=== PATIENT | female | born 1945 | race Caucasian/White ===

== ENCOUNTER → 2017-01-12 | Outpatient (CLI) | payer MEDICARE ==
--- NOTE | 2017-01-12 15:06 | RAD ---
Right shoulder, 3 views, 01/12/2017: History: Shoulder pain The bony structures are demineralized. No fracture or dislocation is identified. There is mild degenerative change at the acromioclavicular joint. The periarticular soft tissues are unremarkable. IMPRESSION: 1. Demineralization. 2. Mild degenerative change at the AC joint. 3. No acute bony abnormality is detected.
== END | disposition home or self-care (01) ==
LOC: DXRADRC 11:46
PROVIDERS: ATTEND Physician Assistant
DX: M19.011 Primary osteoarthritis, right shoulder (principal); M81.8 Other osteoporosis without current pathological fracture
CPT/HCPCS: 73030

== ENCOUNTER → 2018-11-01 | Outpatient (CLI) | payer MEDICARE ==
[2018-11-01 09:57] LABS: ALBUMIN 3.5 g/dL (3.4-5.0); CALCIUM 8.9 mg/dL (8.5-10.1); CREATININE 0.7 mg/dL (0.6-1.0); GFR 81.6; POTASSIUM 4.2 mmol/L (3.5-5.1); TOTAL BILIRUBIN 0.6 mg/dL (0.2-1.0)
== END | disposition home or self-care (01) ==
LOC: LAB 08:43
PROVIDERS: ATTEND Internal Medicine Cardiovascular Disease
DX: I25.10 Atherosclerotic heart disease of native coronary artery without angina pectoris (principal)
CPT/HCPCS: 36415; 80053; 80061

== ENCOUNTER → 2019-12-18 | Outpatient (CLI) | payer MEDICARE ==
[2019-12-18 09:41] LABS: ALBUMIN 3.3 g/dL (3.4-5.0); ALBUMIN/GLOBULIN RATIO 0.9 (1.0-1.7); CALCIUM 8.8 mg/dL (8.5-10.1); CREATININE 0.9 mg/dL (0.6-1.0); GFR 60.9; POTASSIUM 4.1 mmol/L (3.5-5.1); TOTAL BILIRUBIN 0.4 mg/dL (0.2-1.0); TOTAL PROTEIN 6.9 g/dL (6.4-8.2)
== END ==
LOC: LAB 07:39
PROVIDERS: ATTEND Internal Medicine Cardiovascular Disease
DX: I25.10 Atherosclerotic heart disease of native coronary artery without angina pectoris (principal)
CPT/HCPCS: 36415; 80053; 80061

== ENCOUNTER → 2020-01-16 | Outpatient (CLI) | payer MEDICARE ==
--- NOTE | 2020-01-16 15:53 | CARD ---
MR#: [id number] Date of Study: 01/16/2020 Ordering Physician: BENNIE WILKERSON, Referring Physician: BENNIE WILKERSON, Tech: Preethi Valdez [facility] APPROVED REPORT EXAM: Two-dimensional and M-mode echocardiogram with Doppler and color Doppler. Other Information Quality : Good INDICATION Cardiac Disease: CAD 2D DIMENSIONS RVDd3.1 (2.9-3.5cm)Left Atrium(2D)3.5 (1.6-4.0cm) IVSd0.8 (0.7-1.1cm)Aortic Root(2D)3.0 (2.0-3.7cm) LVDd4.1 (3.9-5.9cm)LVOT Diameter2.1 (1.8-2.4cm) PWd0.7 (0.7-1.1cm)LVDs2.8 (2.5-4.0cm) FS (%) 32.4 %SV45.1 ml LVEF(%)61.2 (>50%) Aortic Valve AoV Peak Godwin.119.2cm/sAoV VTI23.1cm AO Peak GR.5.7mmHgLVOT Peak Godwin.112.7cm/s LVOT VTI 20.78cmAO Mean GR.3mmHg SACHIN (VMAX)3.25so4JZO (VTI)3.02cm2 Mitral Valve MV E Plengxhj86.1cm/sMV DECEL [id number] MV A Euawuwqa02.7cm/sE/A Ratio1.1 Tricuspid Valve TR P. Cxpggagp257ft/sRAP UMGJZAAG4ljIn TR Peak Gr.95jhPjEDBT87eaQh Pulmonary Vein S1 Qgewwilb35.9cm/sD2 Jucsczve24.9cm/s LEFT VENTRICLE The left ventricle is normal size. There is normal left ventricular wall thickness. The left ventricu lar systolic function is normal. The Ejection Fraction is 55-60%. There is normal LV segmental wall m otion. Transmitral Doppler flow pattern is Grade I-abnormal relaxation pattern. RIGHT VENTRICLE The right ventricle is normal size. The right ventricular systolic function is normal. ATRIA The left atrium size is normal. The right atrium size is normal. The interatrial septum is intact wit h no evidence for an atrial septal defect or patent foramen ovale as noted on 2-D or Doppler imaging. AORTIC VALVE The aortic valve is calcified but opens well. Doppler and Color Flow revealed trace aortic regurgitat ion. There is no significant aortic valvular stenosis. MITRAL VALVE The mitral valve is calcified but opens well. There is no evidence of mitral valve prolapse. There is no mitral valve stenosis. Doppler and Color-flow revealed mild mitral regurgitation. TRICUSPID VALVE The tricuspid valve is normal in structure and function. Doppler and Color Flow revealed mild tricusp id regurgitation. The PA pressure was estimated at 27 mmHg. There is no tricuspid valve stenosis. PULMONIC VALVE The pulmonary valve is normal in structure and function. Doppler and Color Flow revealed mild pulmoni c valvular regurgitation. There is no pulmonic valvular stenosis. GREAT VESSELS The aortic root is normal in size. The ascending aorta is normal in size. The IVC is normal in size a nd collapses >50% with inspiration. PERICARDIAL EFFUSION There is no evidence of significant pericardial effusion. Critical Notification Critical Value: No <Conclusion> The left ventricular systolic function is normal. The Ejection Fraction is 55-60%. There is normal LV segmental wall motion. Mild mitral regurgitation. Mild tricuspid regurgitation. The PA pressure was estimated at 27 mmHg. There is no evidence of significant pericardial effusion. Signed by : Daryn Reeves, Electronically Approved : 01/16/2020 15:52:52
== END | disposition home or self-care (01) ==
LOC: ECHO 14:44
PROVIDERS: ATTEND Internal Medicine Cardiovascular Disease
DX: I08.8 Other rheumatic multiple valve diseases (principal); I25.10 Atherosclerotic heart disease of native coronary artery without angina pectoris
CPT/HCPCS: 93306

== ENCOUNTER → 2020-01-23 | Outpatient (CLI) | payer MEDICARE ==
--- NOTE | 2020-01-23 17:20 | RAD ---
Examination: Two-view chest HISTORY: History of COPD COMPARISON: None available FINDINGS: The cardiomediastinal grossly appears unremarkable. Mild hyperinflated lungs. Mild prominent appearing bilateral perihilar interstitial lung markings particularly in the bibasilar lungs. Moderate degenerative changes thoracic spine. Mild compression changes of the lower thoracic vertebral body identified. IMPRESSION: Mild prominent bilateral interstitial lung markings could be interstitial lung disease. Recommend CT chest for further evaluation Electronically signed by: Artie Hicks MD (01/23/2020 5:17 PM) [id number]
== END | disposition home or self-care (01) ==
LOC: RAD 12:56
PROVIDERS: ATTEND Internal Medicine Pulmonary Disease
DX: J44.9 Chronic obstructive pulmonary disease, unspecified (principal); M47.814 Spondylosis without myelopathy or radiculopathy, thoracic region
CPT/HCPCS: 71046

== ENCOUNTER → 2020-02-16 | Outpatient (CLI) | payer MEDICARE ==
--- NOTE | 2020-02-16 10:31 | RAD ---
EXAM: CT Chest without IV contrast INDICATION: Reason: COPD. ABNORMAL CXR / Spl. Instructions: / History: TECHNIQUE: Multi-detector row CT images were acquired from the thoracic inlet through the upper abdomen without the use of IV contrast. Sagittal and coronal images were acquired from the transaxial data. Images were acquired both in inspiration and expiration in both the supine and prone positions with high-resolution thin slice discontinuous images. All CT scans performed at this facility utilize dose optimization techniques as appropriate to the exam, including the following: Automated exposure control and adjustment of the mA and/or KV according to patient size (this includes techniques or standardized protocols for targeted exams where dose is indication/reason for exam). COMPARISON: Chest x-ray 01/23/2020 FINDINGS: The absence of IV contrast limits evaluation of soft tissue pathology. CARDIOVASCULAR: Unremarkable MEDIASTINUM & GOLD: Mildly enlarged precarinal node measuring 1.2 cm. No hilar adenopathy. Ascending thoracic aorta measures 3.3 cm, normal in caliber with three-vessel aortic arch. LUNGS: Bilateral reticulonodular opacities in tree-in-bud configuration are present, most conspicuously in the lingula, right middle lobe and in the right lower lobe. Tubular bronchiectasis with volume loss in the medial lungs is also noted. There are no persistent subpleural reticular opacities in the lower lobes on prone imaging. A discrete, round 6 mm noncalcified nodule in the right lower lobe (image 33 of series 2) is present. The lungs are hyperinflated PLEURAL SPACE: No pleural effusions or pneumothorax. OSSEOUS & SOFT TISSUE: Unremarkable ABDOMEN: The visualized portions of the upper abdomen are unremarkable. IMPRESSION: COPD with bilateral tree-in-bud reticulonodular opacities affecting the medial lungs to the greatest extent in a pattern suggesting a chronic atypical inflammatory process such as mycobacterial intracellulare infection. No mass is identified on noncontrast CT. Mildly prominent pretracheal lymph node is favored reactive. Electronically signed by: Abner Rivera MD (02/16/2020 10:28 AM) [id number]
== END | disposition home or self-care (01) ==
LOC: CT 07:31
PROVIDERS: ATTEND Internal Medicine Pulmonary Disease
DX: J44.9 Chronic obstructive pulmonary disease, unspecified (principal); R91.1 Solitary pulmonary nodule
CPT/HCPCS: 71250

== ENCOUNTER → 2020-09-28 | Outpatient (CLI) | payer MEDICARE ==
--- NOTE | 2020-09-28 10:38 | RAD ---
XR TIBIA+FIBULA History: Reason: numbness x 1 week / Spl. Instructions: / History: Technique: 2 views bilateral tibia and fibulas. Comparison: None. Findings: Right tibia and fibula: Normal alignment. No fracture. Soft tissues unremarkable. Left tibia and fibula: Normal alignment. No fracture. Soft tissues unremarkable. Impression: 1. No acute osseous abnormality. Electronically signed by: Jaron Wilks DO (09/28/2020 10:35 AM) [facility]
== END ==
LOC: RAD 09:56
PROVIDERS: ATTEND Family Medicine
DX: R20.2 Paresthesia of skin (principal)
CPT/HCPCS: 73590

== ENCOUNTER → 2020-12-24 | Outpatient (CLI) | payer MEDICARE ==
--- NOTE | 2020-12-24 09:56 | RAD ---
EXAM: Right lower extremity venous Doppler sonogram. HISTORY: Pain and swelling. TECHNIQUE: Bansal scale and color Doppler sonographic evaluation of the right lower extremity veins wit h spectral waveform analysis was performed. FINDINGS: There is normal color flow, normal compressibility and there are normal spectral waveforms in the common femoral, superficial femoral, popliteal, posterior tibial and greater saphenous veins. IMPRESSION: No Doppler evidence of lower extremity deep venous thrombosis. Electronically signed by: Keena Frankel MD (12/24/2020 9:53 AM) [id number]
== END ==
LOC: US 09:10
DX: I83.93 Asymptomatic varicose veins of bilateral lower extremities (principal)
CPT/HCPCS: 93971

== ENCOUNTER → 2021-05-21 | Outpatient (CLI) | payer MEDICARE ==
[2021-05-21 15:45] LABS: BASO % 1 % (0-3); EOS # 0.1 x10^3/uL (0.0-0.7); EOS % 2 % (0-3); HEMATOCRIT 39.5 % (36.0-47.0); HEMOGLOBIN 12.9 g/dL (12.0-15.5); LYMPH # 1.5 x10^3/uL (1.0-4.8); LYMPH % 27 % (24-48); MEAN CORPUSCULAR HEMOGLOBIN 31 pg (25-35); MEAN CORPUSCULAR HGB CONC 33 g/dL (31-37); MEAN CORPUSCULAR VOLUME 95 fL (79-100); MONO # 0.7 x10^3/uL (0.0-1.1); MONO % 12 % (0-9); NEUT # 3.3 x10^3uL (1.8-7.7); NEUT % 58 % (31-73); PLATELET COUNT 199 x10^3/uL (140-400); RED BLOOD COUNT 4.18 x10^6/uL (3.50-5.40); RED CELL DISTRIBUTION WIDTH 13.6 % (11.5-14.5); WHITE BLOOD COUNT 5.6 x10^3/uL (4.0-11.0)
[2021-05-21 16:03] LABS: ALBUMIN 3.5 g/dL (3.4-5.0); ALBUMIN/GLOBULIN RATIO 0.9 (1.0-1.7); CALCIUM 8.7 mg/dL (8.5-10.1); CREATININE 0.6 mg/dL (0.6-1.0); GFR 96.9; POTASSIUM 4.4 mmol/L (3.5-5.1); TOTAL BILIRUBIN 0.4 mg/dL (0.2-1.0); TOTAL PROTEIN 7.3 g/dL (6.4-8.2)
== END ==
LOC: LAB 15:05
PROVIDERS: ATTEND Internal Medicine Cardiovascular Disease
DX: I25.10 Atherosclerotic heart disease of native coronary artery without angina pectoris (principal)
CPT/HCPCS: 36415; 80053; 80061; 85025

== ENCOUNTER → 2021-07-14 | Outpatient (CLI) | payer MEDICARE ==
--- NOTE | 2021-07-14 09:21 | RAD ---
Exam: XR FOOT_LEFT 3 VIEWS History: Foot pain since after left walking. Comparison: None. Findings: Diffusely decreased osseous mineralization. There is no acute fracture identified. There is however a cortical irregularity at the medial aspect of the big toe proximal phalanx, seen only in the AP proj ection. No definite periosteal reaction. The Lisfranc is normally aligned. No focal soft tissue swell ing. Minimal degenerative changes of the interphalangeal joints. Impression: 1. No definite fracture identified, however minimally irregular medial cortex of the big toe proxima l phalanx. Correlate with site of pain this may nondisplaced fracture or stress fracture. 2. Osteopenia. Recommend repeat radiographs in 1-2 weeks if symptoms persist and there is concern fo r occult fracture or stress injury. Electronically signed by: Randy Hernandez MD (07/14/2021 9:18 AM) [facility]
== END ==
LOC: RAD 08:39
PROVIDERS: ATTEND Nurse Practitioner
DX: M85.872 Other specified disorders of bone density and structure, left ankle and foot (principal); M79.672 Pain in left foot
CPT/HCPCS: 73630